=== PATIENT | male | born 1995 | race Caucasian/White ===

== ENCOUNTER 2018-04-17 14:38 | Emergency (ER) | payer OTHER ==
[~2018-04-17] VITALS: Ht 180.3 cm; Wt 99.4 kg
[2018-04-17 14:41] VITALS: BP 144/84
--- NOTE | 2018-04-17 15:55 | NUR ---
Pt ambulated to room with this RN.
--- NOTE | 2018-04-17 16:07 | NUR ---
KAILEY MARTINEZ, AT BEDSIDE TO EVALUATE PT.
[2018-04-17] MEDS ORDERED: KETOROLAC 30 MG/1 ML ONE (16:27)
[2018-04-17] MEDS ORDERED: KETOROLAC 30 MG/1 ML IM ONE (16:30)
--- NOTE | 2018-04-17 16:31 | NUR ---
PT MEDICATED PER MAR.
--- NOTE | 2018-04-17 16:45 | NUR ---
Patient/Caregiver given discharge instructions and they have confirmed that they understand the instructions. Patient ambulatory with steady gait.
== END 2018-04-17 16:46 | disposition home or self-care (01) ==
LOC: ED 16:30
DX: G89.11 Acute pain due to trauma (principal); M25.511 Pain in right shoulder; X58.XXXA Exposure to other specified factors, initial encounter; Y93.63 Activity, rugby; Y92.328 Other athletic field as the place of occurrence of the external cause; Y99.8 Other external cause status
CPT/HCPCS: 73030; 96372; 99283; J1885